=== PATIENT | male | born 1985 | race Caucasian/White ===

== ENCOUNTER 2019-01-09 03:06 | Emergency (ER) | payer SELFPAY ==
[2019-01-09] MEDS ORDERED: SULFAMETHOXAZOLE/TRIMETHOPRIM 800-160 MG TABLET PO ONE (03:22)
[2019-01-09] MEDS ORDERED: DIPH/PERTUSS(ACELL)/TETANUS VAC/PF 0.5 ML SYR (>=10YO) IM ONE (03:22)
--- NOTE | 2019-01-09 03:28 | ER Document Report ---
Addendum entered and electronically signed by VAL EM MD 01/10/19 09:45: Discharge - Discharge Clinical Impression: Suicide attempt by cutting of wrist, Homicidal ideations Depression Qualifiers: Depression Type: major depressive disorder Major depression recurrence: unspecified whether recurrent Active/Remission status: remission status unspecified Qualified Code(s): F32.9 - Major depressive disorder, single episode, unspecified Condition: Stable Disposition: HOME, SELF-CARE Additional Instructions: You have been evaluated both medical and behavioral health teams and been deemed appropriate for discharge. You have been started on Zyprexa 5 mg twice daily and Cogentin 1 mg daily; please take as directed. You are highly encouraged to follow-up with outpatient mental health and substance use treatment. You have been provided a local resource list of area providers including mobile crisis contact information, detox facilities, and the economic assistance "Street Sheet." NARCOTIC / OPIOD ABUSE: Narcotics and opiods are pain-relieving drugs that are often abused. They are addicting. Narcotics cause euphoria, but it often takes increasing amounts to "feel good" and avoid withdrawal symptoms. Overdose of narcotics causes small pupils, coma, and decreased breathing. It's a common cause of . Purity of street narcotics is unpredictable. Injection of narcotics is risky for abscesses, endocarditis (heart infection), pneumonia, and AIDS. Withdrawal from narcotics causes goose bumps, watery mouth, sweating, nasal congestion, muscle aches, abdominal cramps, vomiting, and diarrhea. There's often restlessness and confusion. Treatment programs are available, but you must make the decision to quit. Medication (such as clonidine) can be prescribed to control the symptoms of withdrawal. DEPRESSION: Your evaluation reveals that you have mental depression. While symptoms may be vague, they often include disturbance of sleep, fatigue, loss of appetite, and general loss of interest in life. While depression may be a side effect of drugs, or a reaction to a major change in your life, many cases have no known cause. If depression is acute, and related to a major loss in your life, you can expect it to clear completely with time. If you have been depressed a long time, are prone to repeated bouts of depression or low mood, or have been thinking of suicide, get help. Depression can be treated with anti-depressant medication and counselling. Long-term depression will often take a few weeks to clear, even with appropriate medication. Follow-up care is important. SUICIDAL IDEATION: Suicidal ideation is a common medical term for thoughts about suicide, which may be as detailed as a formulated plan, without the suicidal act itself. Although most people who undergo suicidal ideation do not commit suicide, some go on to make suicide attempts. The range of suicidal ideation varies greatly from fleeting to detailed planning, role playing, and unsuccessful attempts. While thoughts about suicide are common, most people do not carry out serious actions to commit suicide. Based upon your evaluation and discussion with you, we do not believe you are currently at risk to act upon your thoughts of suicide. You have agreed to return to the Emergency Department, at any time, if you feel inclined to act upon your suicidal thoughts. FOLLOW-UP CARE: If you have been referred to a physician for follow-up care, call the physicians office for an appointment as you were instructed or within the next two days. If you experience worsening or a significant change in your symptoms, notify the physician immediately or return to the Emergency Department at any time for re-evaluation. Referrals: [facility] [Outside] - Follow up as needed Addendum entered and electronically signed by WILMA COLON LCSWA 01/10/19 09:43: Discharge - Discharge Clinical Impression: Suicide attempt by cutting of wrist, Homicidal ideations Depression Qualifiers: Depression Type: major depressive disorder Major depression recurrence: unspecified whether recurrent Active/Remission status: remission status unspecified Qualified Code(s): F32.9 - Major depressive disorder, single episode, unspecified Condition: Stable Disposition: HOME, SELF-CARE Additional Instructions: You have been evaluated both medical and behavioral health teams and been deemed appropriate for discharge. You have been started on Zyprexa 5 mg twice daily and Cogentin 1 mg daily; please take as directed. You are highly encouraged to follow-up with outpatient mental health and substance use treatment. You have been provided a local resource list of area providers including mobile crisis contact information, detox facilities, and the economic assistance "Street Sheet." NARCOTIC / OPIOD ABUSE: Narcotics and opiods are pain-relieving drugs that are often abused. They are addicting. Narcotics cause euphoria, but it often takes increasing amounts to "feel good" and avoid withdrawal symptoms. Overdose of narcotics causes small pupils, coma, and decreased breathing. It's a common cause of . Purity of street narcotics is unpredictable. Injection of narcotics is risky for abscesses, endocarditis (heart infection), pneumonia, and AIDS. Withdrawal from narcotics causes goose bumps, watery mouth, sweating, nasal congestion, muscle aches, abdominal cramps, vomiting, and diarrhea. There's often restlessness and confusion. Treatment programs are available, but you must make the decision to quit. Medication (such as clonidine) can be prescribed to control the symptoms of withdrawal. DEPRESSION: Your evaluation reveals that you have mental depression. While symptoms may be vague, they often include disturbance of sleep, fatigue, loss of appetite, and general loss of interest in life. While depression may be a side effect of drugs, or a reaction to a major change in your life, many cases have no known cause. If depression is acute, and related to a major loss in your life, you can expect it to clear completely with time. If you have been depressed a long time, are prone to repeated bouts of depression or low mood, or have been thinking of suicide, get help. Depression can be treated with anti-depressant medication and counselling. Long-term depression will often take a few weeks to clear, even with appropriate medication. Follow-up care is important. SUICIDAL IDEATION: Suicidal ideation is a common medical term for thoughts about suicide, which may be as detailed as a formulated plan, without the suicidal act itself. Although most people who undergo suicidal ideation do not commit suicide, some go on to make suicide attempts. The range of suicidal ideation varies greatly from fleeting to detailed planning, role playing, and unsuccessful attempts. While thoughts about suicide are common, most people do not carry out serious actions to commit suicide. Based upon your evaluation and discussion with you, we do not believe you are currently at risk to act upon your thoughts of suicide. You have agreed to return to the Emergency Department, at any time, if you feel inclined to act upon your suicidal thoughts. FOLLOW-UP CARE: If you have been referred to a physician for follow-up care, call the physician s office for an appointment as you were instructed or within the next two days. If you experience worsening or a significant change in your symptoms, notify the physician immediately or return to the Emergency Department at any time for re-evaluation. Referrals: [facility] [Outside] - Follow up as needed Original Note: ED Psych Disorder / Suicide - General Chief Complaint: Suicidal Ideation Stated Complaint: LACERATION TO WRIST Time Seen by Provider: 01/09/19 03:12 Mode of Arrival: Ambulatory Information source: Patient - HPI Patient complains to provider of: Suicidal attempt Onset: Just prior to arrival Onset was: Sudden Quality of pain: No pain Pain Level: Denies Suicide Risk Factors: Bipolar, Depressed Situational problems related to: Other - Financial Problems. Suicide Attempt Method: Stabbing/Cutting Injury to: Wrist - Left Wrist. Normal mood: No Associated symptoms: Depressed, Flat affect Similar symptoms previously: No Recently seen / treated by doctor: No - Related Data Allergies/Adverse Reactions: No Known Allergies Allergy (Unverified 01/09/19 05:06) Past Medical History - General Information source: Patient - Social History Smoking Status: Unknown if Ever Smoked Family History: Other - Unknown Review of Systems - Review of Systems Constitutional: No symptoms reported EENT: No symptoms reported Cardiovascular: No symptoms reported Respiratory: No symptoms reported Gastrointestinal: No symptoms reported Genitourinary: No symptoms reported Male Genitourinary: No symptoms reported Musculoskeletal: No symptoms reported Skin: Other - Left wrist laceration. Hematologic/Lymphatic: No symptoms reported Neurological/Psychological: Depression, Homicidal ideation, Suicidal ideation -: Yes All other systems reviewed and negative Physical Exam - Vital signs Vitals: Temp Pulse Resp BP Pulse Ox 98.5 F 100 18 114/69 100 01/09/19 03:29 01/09/19 03:29 01/09/19 03:29 01/09/19 03:29 01/09/19 03:29 Interpretation: Normal - General General appearance: Appears well, Alert In distress: None - HEENT Head: Normocephalic, Atraumatic Eyes: Normal Pupils: PERRL - Respiratory Respiratory status: No respiratory distress Chest status: Nontender Breath sounds: Normal Chest palpation: Normal - Cardiovascular Rhythm: Regular Heart sounds: Normal auscultation Murmur: No - Abdominal Inspection: Normal Distension: No distension Bowel sounds: Normal Tenderness: Nontender Organomegaly: No organomegaly - Back Back: Normal, Nontender - Extremities General upper extremity: Normal inspection, Nontender, Normal color, Normal ROM, Normal temperature General lower extremity: Normal inspection, Nontender, Normal color, Normal ROM, Normal temperature, Normal weight bearing. No: Valeria's sign - Neurological Neuro grossly intact: Yes Cognition: Normal Orientation: AAOx4 Atif Coma Scale Eye Opening: Spontaneous [place] Coma Scale Verbal: Oriented [place] Coma Scale Motor: Obeys Commands [place] Coma Scale Total: 15 Speech: Normal Motor strength normal: LUE, RUE, LLE, RLE Sensory: Normal - Psychological Associated symptoms: Depressed, Flat affect, Other - Suicide and Homicide Ideation. - Skin Skin Temperature: Warm Skin Moisture: Dry Skin Color: Normal Skin irregularity: Laceration - 4 cm Left wrist superficial laceration. Bleeding is controlled. Course - Vital Signs Vital signs: Temp Pulse Resp BP Pulse Ox 98.5 F 100 18 114/69 100 01/09/19 03:29 01/09/19 03:29 01/09/19 03:29 01/09/19 03:29 01/09/19 03:29 - Laboratory Result Diagrams: 01/09/19 03:15 01/09/19 03:15 Laboratory results interpreted by me: 01/09/19 01/09/19 01/09/19 03:15 03:15 04:00 WBC 10.8 H RBC 4.20 L Hgb 12.6 L Hct 36.9 L Urine Protein 30 H Urine Ketones TRACE H Salicylates < 1.0 L Acetaminophen < 10 L Procedures - Laceration/Wound Repair Left Upper Wrist Time completed: 03:44 Wound length (cm): 4 Wound's Depth, Shape: Superficial Laceration pre-procedure: Shur-Clens applied Wound explored: No foreign body removed Wound Repaired With: Dermabond Post-procedure NV exam normal: Yes Complications: No Discharge - Discharge Clinical Impression: Suicide attempt by cutting of wrist, Homicidal ideations, Depression Condition: Stable Disposition: PSYCH HOSP/UNIT
[2019-01-09 03:56] LABS: ABSOLUTE BASOPHILS # (AUTO) 0.1 10^3/uL (0.0-0.2); ABSOLUTE EOSINOPHILS # (AUTO) 0.1 10^3/uL (0.0-0.6); ABSOLUTE LYMPHOCYTES (AUTO) 2.1 10^3/uL (0.5-4.7); ABSOLUTE MONOCYTES (AUTO) 1.1 10^3/uL (0.1-1.4); ABSOLUTE NEUT (AUTO) 7.4 10^3/uL (1.7-8.2); BASOPHILS % (AUTO) 0.5 % (0-2); HEMATOCRIT 36.9 % (37.9-51.0); HEMOGLOBIN 12.6 g/dL (13.5-17.0); LYMPHOCYTES % (AUTO) 19.1 % (13-45); MEAN CORPUSCULAR HGB CONC 34.1 g/dL (32.0-36.0); MEAN CORPUSCULAR VOLUME 88 fl (80-97); MONOCYTES % (AUTO) 10.4 % (3-13); PLATELET COUNT 233 10^3/uL (150-450); RED CELL DISTRIBUTION WIDTH 12.7 % (11.5-14.0); TOTAL CELLS COUNTED % (AUTO) 100 %; WHITE BLOOD COUNT 10.8 10^3/uL (4.0-10.5)
[2019-01-09 04:00] LABS: ALANINE AMINOTRANSFERASE 25 U/L (21-72); ALBUMIN 4.1 g/dL (3.5-5.0); ALKALINE PHOSPHATASE 71 U/L (38-126); ANION GAP 11 (5-19); ASPARTATE AMINO TRANSFERASE 23 U/L (17-59); BILIRUBIN,DIRECT 0.2 mg/dL (0.0-0.4); BILIRUBIN,TOTAL 0.3 mg/dL (0.2-1.3); BLOOD UREA NITROGEN 11 mg/dL (7-20); CALCIUM 9.3 mg/dL (8.4-10.2); CARBON DIOXIDE 28 mmol/L (22-30); CHLORIDE 100 mmol/L (98-107); GLUCOSE 79 mg/dL (75-110); POTASSIUM 4.2 mmol/L (3.6-5.0); SODIUM 139.3 mmol/L (137-145); TOTAL PROTEIN 7.2 g/dL (6.3-8.2)
[2019-01-09 04:02] LABS: ACETAMINOPHEN < 10 ug/mL (10-30); ALCOHOL < 10 mg/dL (NONE DETECTED); SALICYLATE < 1.0 mg/dL (2.0-20.0)
[2019-01-09] MEDS ORDERED: NICOTINE 7 MG/24 HR PATCH.TD24 TD ONE ×2 (04:16→11:30)
[2019-01-09 04:23] LABS: APPEARANCE,URINE SLIGHTLY-CLOUDY; BILIRUBIN,URINE NEGATIVE (NEGATIVE); COLOR,URINE AMBER; GLUCOSE, URINE NEGATIVE (NEGATIVE); KETONES,URINE TRACE mg/dL (NEGATIVE); LEUKOCYTE ESTERASE,URINE NEGATIVE (NEGATIVE); NITRITE,URINE NEGATIVE (NEGATIVE); PROTEIN,URINE 30 mg/dL (NEGATIVE); URINE SPECIFIC GRAVITY 1.029; UROBILINOGEN,URINE NEGATIVE mg/dL (<2.0)
[2019-01-09 04:34] LABS: URINE AMPHETAMINES SCREEN NEGATIVE; URINE BARBITURATES SCREEN NEGATIVE; URINE BENZODIAZEPINES SCREEN UNCONFIRMED POSITIVE; URINE COCAINE SCREEN NEGATIVE; URINE MARIJUANA (THC) SCREEN NEGATIVE; URINE METHADONE SCREEN NEGATIVE; URINE PHENCYCLIDINE SCREEN NEGATIVE
[2019-01-09] MEDS ORDERED: HALOPERIDOL LACTATE INJ 5 MG/1 ML VIAL ONE (07:41)
[2019-01-09] MEDS ORDERED: DIPHENHYDRAMINE HCL 50 MG/ML VIAL ONE (07:41)
[2019-01-09] MEDS ORDERED: LORAZEPAM INJ 2 MG/1 ML VIAL ONE (07:42)
--- NOTE | 2019-01-09 09:49 | ER Document Report ---
Doctor's Note Notes: 01/09/19 09:44 Prior to my arrival this patient apparently tried to elope from the department and was in the process of undressing while running away when security and several police officers who were in the department returned him to his room where he was sedated using Benadryl, Ativan and Haldol. Patient is currently sl eeping well, no acute distress, while listening to his heart and lungs the patient did wake up and look at me but then went back to sleep. Heart has regular rate and rhythm with no murmurs gallops or rubs, lungs are clear to auscultation bilaterally, head is normocephalic atraumatic but does have yellowish Gold-gisele spray paint on the left side of his upper face as well as around his mouth. Patient is an involuntary commitment, behavioral health recommends Zyprexa 5 mg twice a day as well as Cogentin 1 mg daily. These medications have been ordered. We will continue to monitor. Agree with continuing to hold patient as an involuntary commitment patient.
[2019-01-09] MEDS ORDERED: BENZTROPINE MESYLATE 1 MG TABLET PO SCH (10:00)
[2019-01-09] MEDS: OLANZAPINE 5 MG TABLET PO SCH ×2 (10:25→18:08)
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
[2019-01-10 06:56] VITALS: BP 118/63
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
== END 2019-01-10 09:57 | disposition home or self-care (01) ==
LOC: ER 03:06
PROC: 0HQEXZZ Repair Left Lower Arm Skin, External Approach (ICD-10-PCS; principal; 2019-01-09)
DX: S61.512A Laceration without foreign body of left wrist, initial encounter (principal); X78.9XXA Intentional self-harm by unspecified sharp object, initial encounter; R45.850 Homicidal ideations; F32.9 Major depressive disorder, single episode, unspecified
CPT/HCPCS: 99285; 90471; 96374; 96375; 36415; 80307 ×4; 84443; 85025; 80053; 81001; 90715; 12002; J1200; J1630; J2060; J3490

== ENCOUNTER 2019-01-12 02:52 | Emergency (ER) | payer SELFPAY ==
[2019-01-12 03:20] VITALS: BP 130/92
--- NOTE | 2019-01-12 03:21 | ER Document Report ---
ED Cardiac - General Stated Complaint: POSSIBLE OVERDOSE Time Seen by Provider: 01/12/19 03:00 Notes: 33-year-old male. 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 Was injecting heroin because his heart was racing too fast from using methamphetamines. Patient's also is a heroin addict. When he overdose his gave Narcan up the nose and called 911. EMS transported patient to the ER. Patient was alert and oriented on arrival. Stating that he feels all fine now needs to go home. He is removed all of his EEG leads and refuses to stay any longer. He currently denies any chest pain or symptoms. - Related Data Allergies/Adverse Reactions: No Known Allergies Allergy (Unverified 01/09/19 05:06) Past Medical History - General Information source: Patient - Social History Smoking Status: Current Every Day Smoker Frequency of alcohol use: Occasional Drug Abuse: Heroin, Methamphetamine Lives with: Spouse/Significant other Family History: Other - Unknown - Medical History Medical History: Negative Renal/ Medical History: Denies: Hx Peritoneal Dialysis Review of Systems - Review of Systems Notes: Constitutional: denies: Chills, Diaphoresis, Fever, Malaise, Weakness. Complaining of overdose but reversed with Narcan EENT: denies: Eye discharge, Blurred vision, Tearing, Double vision, Nose congestion, Nose discharge, Throat swelling, Mouth pain Cardiovascular: denies: Palpitations, Heart racing, Orthopnea, Dyspnea, Chest pain Respiratory: denies: Cough, Hurts to breathe, Wheezing, Shortness of breath Gastrointestinal: denies: Abdominal pain, Diarrhea, Nausea, Vomiting, Black stools, bright red blood in stool Genitourinary: denies: Burning, Dysuria, Discharge, Frequency, Flank pain, Hematuria Musculoskeletal: denies: Joint pain, Joint swelling, Muscle pain, Muscle stiffness, back pain Hematologic/Lymphatic: denies: Anemia, Easy bleeding, Easy bruising, Blood clots Neurological/Psychological: denies: Confusion, Dementia, Depression, Loss of consciousness Skin: No lesions, no masses, no skin breakdown, no abscesses Physical Exam - Vital signs Interpretation: Normal - General General appearance: Appears well, Alert - HEENT Head: Normocephalic, Atraumatic Eyes: Normal Pupils: PERRL - Respiratory Respiratory status: No respiratory distress Chest status: Nontender Breath sounds: Normal Chest palpation: Normal - Cardiovascular Rhythm: Regular Heart sounds: Normal auscultation Murmur: No - Abdominal Inspection: Normal Distension: No distension Bowel sounds: Normal Tenderness: Nontender Organomegaly: No organomegaly - Back Back: Normal, Nontender - Extremities General upper extremity: Normal inspection, Nontender, Normal color, Normal ROM, Normal temperature General lower extremity: Normal inspection, Nontender, Normal color, Normal ROM, Normal temperature, Normal weight bearing. No: Valeria's sign - Neurological Neuro grossly intact: Yes Cognition: Normal Orientation: AAOx4 [place] Coma Scale Eye Opening: Spontaneous Atif Coma Scale Verbal: Oriented [place] Coma Scale Motor: Obeys Commands Atif Coma Scale Total: 15 Speech: Normal Motor strength normal: LUE, RUE, LLE, RLE Sensory: Normal - Psychological Associated symptoms: Normal affect, Normal mood - Skin Skin Temperature: Warm Skin Moisture: Dry Skin Color: Normal Course - Re-evaluation Re-evalutation: 01/12/19 03:21 Patient is alert and oriented no acute distress. No obvious murmur. No fever. Had a long discussion with patient with regards to drug abuse. Will provide resources. Patient has given me exactly "30 minutes or he is walking out". Will DC at this time. Discharge - Discharge Clinical Impression: Heroin overdose Qualifiers: Encounter type: initial encounter Injury intent: accidental or unintentional Qualified Code(s): T40.1X1A - Poisoning by heroin, accidental (unintentional), initial encounter Condition: Good Disposition: HOME, SELF-CARE Instructions: Overdose ([facility]) Prescriptions: Naloxone HCl [Narcan] 4 mg NS ONCE PRN #1 spray PRN Reason:
== END 2019-01-12 03:32 | disposition home or self-care (01) ==
LOC: ER 02:52
DX: T40.1X1A Poisoning by heroin, accidental (unintentional), initial encounter (principal); F17.200 Nicotine dependence, unspecified, uncomplicated; F19.10 Other psychoactive substance abuse, uncomplicated
CPT/HCPCS: 99284